=== PATIENT | male | born 1975 | race Caucasian/White ===

== ENCOUNTER 2022-10-24 09:03 | Day surgery (SDC) | payer BC ==
[~2022-10-24 09:03] MED LIST: Lactated Ringers 1,000 ML IV SCH
[2022-10-24] MEDS ORDERED: Propofol 200 MG/20 ML SDV ONE (09:26)
[2022-10-24] MEDS ORDERED: Lidocaine 2% 5 ML SDV ONE (09:26)
[2022-10-24] MEDS ORDERED: fentaNYL 100 MCG/2 ML SDV ONE (09:26)
== END 2022-10-24 11:15 | disposition home or self-care (01) ==
LOC: MW.SDS 09:03
PROVIDERS: ATTEND Surgery
DX: Z12.11 Encounter for screening for malignant neoplasm of colon (principal); Z86.010 Personal history of colon polyps
CPT/HCPCS: 45378; J2704; J3010; J7120; J3490